=== PATIENT | male | born 1955 | race African-American/Black ===

== ENCOUNTER 2017-02-21 11:10 | Emergency (ER) | payer MEDICAID, MEDICARE ==
[~2017-02-21] VITALS: Ht 175.3 cm; Wt 86.0 kg
[2017-02-21 11:36] VITALS: BP 126/83
[2017-02-21 11:54] LABS: BASOPHILS % 0.5 % (0.0-2.0); EOSINOPHILS % 5.9 % (0.0-5.0); HEMATOCRIT. 40.1 % (42.0-52.0); HEMOGLOBIN. 13.4 g/dL (14.0-18.0); MEAN CORPUSCULAR HEMOGLOBIN 27.3 pg (28.0-32.0); MEAN CORPUSCULAR VOLUME 81.5 fL (80.0-94.0); MEAN PLATELET VOLUME 8.8 fl (7.4-10.4); MONOCYTES % 7.6 % (2.0-8.0); PLATELET 216 x1000/uL (130-400); RED BLOOD CELL COUNT 4.92 mill/uL (4.7-6.1); RED CELL DISTRIBUTION WIDTH 14.8 % (11.6-14.6)
[2017-02-21 11:58] LABS: CHLORIDE 103 mEq/L (98-107)
[2017-02-21 12:00] LABS: INR 1.1; PROTHROMBIN TIME 11.1 sec
[2017-02-21] MEDS ORDERED: MORPHINE SULFATE 4 MG/ML CPJ (NOT FOR IM USE) IV ONE (12:00)
[2017-02-21 12:06] LABS: CARBON DIOXIDE 29 mEq/L (21-32)
[2017-02-21 12:13] LABS: CLARITY URINE CLEAR (CLEAR); COLOR URINE YELLOW (YELLOW); GLUCOSE URINE NEGATIVE (NEGATIVE); KETONES URINE NEGATIVE (NEGATIVE); LEUKOCYTE ESTERASE URINE NEGATIVE (NEGATIVE); NITRITE URINE NEGATIVE (NEGATIVE); OCCULT BLOOD URINE NEGATIVE (NEGATIVE); PH URINE 5.5 (4.5-8.0); PROTEIN URINE NEGATIVE (NEGATIVE); SPECIFIC GRAVITY URINE 1.016 (1.005-1.030); UROBILINOGEN URINE 0.2 E.U./dL (0.2-1.0)
== END 2017-02-21 14:30 | disposition home or self-care (01) ==
LOC: ER 11:10
DX: K92.1 Melena (principal); I10 Essential (primary) hypertension; E03.9 Hypothyroidism, unspecified
CPT/HCPCS: 36415; 74176; 80053; 81003; 85025; 85610; 85730; 86850; 86900; 86901; 99285; Z7610; J2270